=== PATIENT | male | born 1970 | race Caucasian/White ===

== ENCOUNTER 2024-02-28 18:13 | Inpatient (IN) | payer BC, MEDICAID ==
[~2024-02-28] VITALS: Ht 170.2 cm; Wt 65.5 kg
[2024-02-28 18:54] LABS: Basophils # (auto) 0.2 10 ^3/uL (0-0.2); Basophils % (auto) 1.8 % (0.0-2.0); Eosinophils # (auto) 0 10 ^3/uL (0-0.8); Eosinophils % (auto) 0.3 % (0.0-7.0); Hematocrit 33.1 % (41.0-53.0); Hemoglobin 9.9 g/dL (13.5-17.5); Lymphocytes # (auto) 0.5 10 ^3/uL (0.4-5.4); Lymphocytes % (auto) 6.1 % (10.0-50.0); Mean Corpuscular Hemoglobin 20.4 pg (28.0-32.0); Mean Corpuscular Hgb Conc. 29.8 g/dL (32.0-36.0); Mean Corpuscular Volume 68.5 fL (80.0-100.0); Monocytes # (auto) 0.8 10 ^3/uL (0-1.3); Monocytes % (auto) 9.1 % (0.0-12.0); Neutrophils # (auto) 7.1 10 ^3/uL (1.6-8.6); Neutrophils % (auto) 82.7 % (37.0-80.0); Red Blood Cells 4.83 10^6/uL (4.5-5.90); Red Cell Distribution Width 23.7 % (11.8-14.3); White Blood Cell 8.6 10^3/uL (4.4-10.8)
[2024-02-28 19:10] VITALS: O2SAT 98
[2024-02-28 19:12] LABS: Albumin 3.5 g/dL (3.2-4.8); Alkaline Phosphatase 167 U/L (46-116); Anion Gap 20 (5-15); Aspartate Aminotransferase 11 U/L (13-40); BUN/Creatinine Ratio 5.8 (10.0-20.0); Blood Urea Nitrogen 10 mg/dL (9-23); Calcium 10.2 mg/dL (8.7-10.4); Carbon Dioxide 10 mmol/L (20-30); Chloride 109 mmol/L (98-107); Glucose 83 mg/dL (74-106); Lipase 60 U/L (12-53); Potassium 2.8 mmol/L (3.5-5.1); Sodium 139 mmol/L (136-145)
[2024-02-28 19:13] LABS: Bilirubin, Total 0.2 mg/dL (0.2-1.0); Total Protein 5.5 g/dL (5.7-8.2)
[2024-02-28 19:17] LABS: Anisocytosis Slight; Hypochromia Marked; Ovalocytes FEW; Platelet Estimate Adequate
[2024-02-28 19:18] LABS: Alanine Aminotransferase < 9 U/L (7-40)
[2024-02-28 19:32] LABS: Urine Bacteria None Seen /hpf (None Seen)
[2024-02-28 19:36] VITALS: O2SAT 98
[2024-02-28 19:37] LABS: Urine Blood Negative /uL (Negative); Urine Clarity Clear (Clear); Urine Color Light-Yellow (Yellow); Urine Hyaline Cast MANY /lpf (0 - 2); Urine Mucus FEW (None Seen); Urine Protein, UAD 1+ (Negative); Urine Urobilinogen Normal (Negative); Urine WBC 2 /hpf (0 - 3)
[2024-02-28] MEDS: POTASSIUM EFFERVESENT TAB 25 MEQ PO ONE (20:27)
[2024-02-28] MEDS ORDERED: ACETAMINOPHEN 325 MG TAB PO PRN (21:45)
[2024-02-28] MEDS ORDERED: DOCUSATE SOD 100 MG CAP PO PRN (21:45)
[2024-02-28] MEDS ORDERED: ONDANSETRON HCL 4 MG/2 ML VIAL IV PRN (21:45)
[2024-02-28] MEDS: TAMSULOSIN HYDROCHLORIDE 0.4 MG CAP PO SCH (21:52)
[2024-02-28] MEDS: HYDROmorphone HCL 2 MG/ML VL/or syr IV ONE (21:56)
[2024-02-28] MEDS: SODIUM CHLOR 0.9% PF (SALINE LOCK) 10ML VIAL/SYR IV SCH (21:56)
[2024-02-28] MEDS: LACTATED RINGER'S 1,000 ML IV ONE (21:57)
[2024-02-29] VITALS (9 sets, daily range): BP systolic 105–123; BP diastolic 62–86; PULSE 91–106; RESP 15–18; TEMP 97.7–98.4; O2SAT 92–97
[2024-02-29] MEDS ORDERED: NITROGLYCERIN 0.4 MG SL TAB SL PRN ×2 (00:15→00:30)
[2024-02-29] MEDS ORDERED: MORPHINE SULFATE INJ 2 MG/ml SYRG IV PRN ×2 (00:15→00:30)
[2024-02-29] MEDS ORDERED: ONDANSETRON HCL 4 MG/2 ML VIAL IV PRN ×2 (00:15→00:30)
[2024-02-29] MEDS ORDERED: ACETAMINOPHEN 325 MG TAB PO PRN ×2 (00:15→00:30)
[2024-02-29 06:37] LABS: Eosinophils # (auto) 0.2 10 ^3/uL (0-0.8); Hemoglobin 8.9 g/dL (13.5-17.5); Lymphocytes # (auto) 0.5 10 ^3/uL (0.4-5.4); White Blood Cell 6.5 10^3/uL (4.4-10.8)
[2024-02-29 06:40] LABS: Basophils # (auto) 0.1 10 ^3/uL (0-0.2); Basophils % (auto) 1.2 % (0.0-2.0); Eosinophils % (auto) 2.7 % (0.0-7.0); Hematocrit 29.8 % (41.0-53.0); Lymphocytes % (auto) 7.5 % (10.0-50.0); Mean Corpuscular Hemoglobin 20.3 pg (28.0-32.0); Mean Corpuscular Volume 67.8 fL (80.0-100.0); Monocytes # (auto) 0.7 10 ^3/uL (0-1.3); Monocytes % (auto) 11.3 % (0.0-12.0); Neutrophils % (auto) 77.3 % (37.0-80.0); Red Blood Cells 4.39 10^6/uL (4.5-5.90)
[2024-02-29 06:43] LABS: Chloride 107 mmol/L (98-107); Sodium 139 mmol/L (136-145)
[2024-02-29 06:44] LABS: Anion Gap 13 (5-15); Calcium 10.4 mg/dL (8.7-10.4); Carbon Dioxide 19 mmol/L (20-30)
[2024-02-29 06:49] LABS: BUN/Creatinine Ratio 7.2 (10.0-20.0); Blood Urea Nitrogen 11 mg/dL (9-23); Glucose 83 mg/dL (74-106)
[2024-02-29] MEDS: MORPHINE SULFATE INJ 2 MG/ml SYRG IV PRN (07:00)
[2024-02-29 07:07] LABS: Red Cell Distribution Width 23.4 % (11.8-14.3)
[2024-02-29] MEDS ORDERED: MECL-126 PO (07:58)
[2024-02-29] MEDS ORDERED: GAB100C PO (07:58)
[2024-02-29] MEDS ORDERED: ESCI1TAB36 PO (07:58)
[2024-02-29] MEDS ORDERED: AMLO1TAB22 PO (07:58)
[2024-02-29] MEDS: LACTATED RINGER'S 1,000 ML IV ONE (09:58)
[2024-02-29] MEDS: POTASSIUM EFFERVESENT TAB 25 MEQ PO ONE (10:13)
[2024-02-29] MEDS: SODIUM CHLORIDE 0.9% 1,000 ML IV SCH (10:15)
[2024-02-29] MEDS: HYDROcodone-ACET 5/325MG TAB PO PRN (10:15)
[2024-02-29 10:28] LABS: % Iron Saturation 9.9 % (20-55)
[2024-02-29] MEDS: IRON SUCROSE COMPLEX 100 ML IV SCH (15:01)
[2024-02-29] MEDS: HYDROcodone-ACET 10/325MG TAB PO PRN (15:01)
[2024-02-29 15:41] LABS: Sodium Urine < 10 mmol/L (40-220)
[2024-02-29 15:45] LABS: Protein, Urine 115.4 mg/dL (0.0-11.9)
[2024-02-29 15:48] LABS: Creatinine, Urine 143.19 mg/dL (30.0-125.0)
[2024-02-29] MEDS: D5W/SOD CHLO 0.9% 1,000 ML IV SCH (16:00)
[2024-03-01] VITALS (7 sets, daily range): BP systolic 109–133; BP diastolic 64–84; PULSE 101–112; RESP 16–19; TEMP 97.4–98.5; O2SAT 92–95
[2024-03-01 06:14] LABS: Basophils # (auto) 0.1 10 ^3/uL (0-0.2); Hemoglobin 7.9 g/dL (13.5-17.5); Monocytes # (auto) 0.6 10 ^3/uL (0-1.3); White Blood Cell 5.3 10^3/uL (4.4-10.8)
[2024-03-01 06:21] LABS: Eosinophils # (auto) 0.2 10 ^3/uL (0-0.8); Eosinophils % (auto) 4.6 % (0.0-7.0); Hematocrit 25.9 % (41.0-53.0); Lymphocytes # (auto) 0.4 10 ^3/uL (0.4-5.4); Lymphocytes % (auto) 7.9 % (10.0-50.0); Mean Corpuscular Hemoglobin 20.9 pg (28.0-32.0); Mean Corpuscular Hgb Conc. 30.6 g/dL (32.0-36.0); Mean Corpuscular Volume 68.1 fL (80.0-100.0); Monocytes % (auto) 10.8 % (0.0-12.0); Neutrophils % (auto) 75.7 % (37.0-80.0); Red Blood Cells 3.81 10^6/uL (4.5-5.90); Red Cell Distribution Width 23.5 % (11.8-14.3)
[2024-03-01 06:32] LABS: Chloride 107 mmol/L (98-107); Potassium 2.9 mmol/L (3.5-5.1); Sodium 138 mmol/L (136-145)
[2024-03-01 06:33] LABS: Anion Gap 9 (5-15); Calcium 9.8 mg/dL (8.7-10.4); Carbon Dioxide 22 mmol/L (20-30)
[2024-03-01 06:38] LABS: BUN/Creatinine Ratio 7.6 (10.0-20.0); Blood Urea Nitrogen 10 mg/dL (9-23); Glucose 85 mg/dL (74-106)
[2024-03-01 08:06] LABS: PSA Free 0.21 ng/mL; Prostate Specific Antigen 0.6 ng/mL (0.0-4.0)
[2024-03-02] VITALS (7 sets, daily range): BP systolic 91–134; BP diastolic 56–75; PULSE 65–118; RESP 17–20; TEMP 97.6–98.6; O2SAT 91–98
[2024-03-02 07:17] LABS: Basophils # (auto) 0.1 10 ^3/uL (0-0.2); Hemoglobin 8.1 g/dL (13.5-17.5); Neutrophils # (auto) 6.3 10 ^3/uL (1.6-8.6); Red Blood Cells 3.92 10^6/uL (4.5-5.90)
[2024-03-02 07:19] LABS: Basophils % (auto) 0.9 % (0.0-2.0); Eosinophils # (auto) 0.3 10 ^3/uL (0-0.8); Eosinophils % (auto) 3.3 % (0.0-7.0); Hematocrit 27.1 % (41.0-53.0); Lymphocytes # (auto) 0.8 10 ^3/uL (0.4-5.4); Lymphocytes % (auto) 9.6 % (10.0-50.0); Mean Corpuscular Hemoglobin 20.7 pg (28.0-32.0); Mean Corpuscular Hgb Conc. 29.9 g/dL (32.0-36.0); Mean Corpuscular Volume 69.1 fL (80.0-100.0); Monocytes % (auto) 11.3 % (0.0-12.0); Neutrophils % (auto) 74.9 % (37.0-80.0); Nucleated Red Blood Cells % 0.4 %; White Blood Cell 8.5 10^3/uL (4.4-10.8)
[2024-03-02 07:30] LABS: Anion Gap 6 (5-15); Calcium 9.9 mg/dL (8.7-10.4); Carbon Dioxide 23 mmol/L (20-30); Chloride 109 mmol/L (98-107); Potassium 2.8 mmol/L (3.5-5.1); Sodium 138 mmol/L (136-145)
[2024-03-02 07:36] LABS: BUN/Creatinine Ratio 9.4 (10.0-20.0); Blood Urea Nitrogen 10 mg/dL (9-23); Glucose 94 mg/dL (74-106)
[2024-03-02] MEDS: POTASSIUM CHL 20 Meq TABLET PO ONE (11:16)
[2024-03-02] MEDS ORDERED: MECLIZINE HCL 25 MG TAB PO PRN (19:45)
[2024-03-02] MEDS: APIXABAN 5 MG TAB PO SCH (22:04)
[2024-03-02] MEDS: GABAPENTIN 100 MG CAP PO SCH (22:05)
[2024-03-02] MEDS: ATORVASTATIN 20 MG TAB PO SCH (22:05)
[2024-03-02] MEDS: CARVEDILOL 3.125 MG TAB PO SCH (22:06)
[2024-03-03] VITALS (7 sets, daily range): BP systolic 93–119; BP diastolic 57–70; PULSE 99–112; RESP 16–19; TEMP 98.4–100.1; O2SAT 92–98
[2024-03-03 06:07] LABS: Basophils # (auto) 0 10 ^3/uL (0-0.2); Basophils % (auto) 0.6 % (0.0-2.0); Eosinophils # (auto) 0.2 10 ^3/uL (0-0.8); Eosinophils % (auto) 4.2 % (0.0-7.0); Hematocrit 24.9 % (41.0-53.0); Hemoglobin 7.6 g/dL (13.5-17.5); Lymphocytes # (auto) 0.4 10 ^3/uL (0.4-5.4); Lymphocytes % (auto) 7.5 % (10.0-50.0); Mean Corpuscular Hgb Conc. 30.7 g/dL (32.0-36.0); Mean Corpuscular Volume 68.6 fL (80.0-100.0); Monocytes # (auto) 0.7 10 ^3/uL (0-1.3); Monocytes % (auto) 14.4 % (0.0-12.0); Neutrophils # (auto) 3.8 10 ^3/uL (1.6-8.6); Neutrophils % (auto) 73.3 % (37.0-80.0); Nucleated Red Blood Cells % 0.1 %; Red Blood Cells 3.64 10^6/uL (4.5-5.90); Red Cell Distribution Width 23.7 % (11.8-14.3); White Blood Cell 5.2 10^3/uL (4.4-10.8)
[2024-03-03 06:16] LABS: Chloride 112 mmol/L (98-107); Potassium 3.5 mmol/L (3.5-5.1); Sodium 141 mmol/L (136-145)
[2024-03-03 06:17] LABS: Anion Gap 5 (5-15); Calcium 9.8 mg/dL (8.7-10.4); Carbon Dioxide 24 mmol/L (20-30)
[2024-03-03 06:22] LABS: BUN/Creatinine Ratio 10.3 (10.0-20.0); Blood Urea Nitrogen 11 mg/dL (9-23); Glucose 93 mg/dL (74-106)
[2024-03-03 08:06] LABS: Immunoglobulin A 208 mg/dL (90-386); Immunoglobulin G, Serum 510 mg/dL (603-1613); Immunoglobulin M 34 mg/dL (20-172)
[2024-03-03] MEDS: ASPirin 81 mg TAB PO SCH (09:06)
[2024-03-03] MEDS: amLODIPine BESYLATE 5 MG TAB PO SCH (09:07)
[2024-03-03] MEDS: FUROSEMIDE 20 MG TAB PO SCH (09:07)
[2024-03-03] MEDS: LISINOPRIL 5 MG TAB PO SCH (09:08)
[2024-03-03 11:03] LABS: Hypochromia Marked; Ovalocytes MANY; Platelet Estimate Adequate
[2024-03-03 11:04] LABS: Anisocytosis Slight
[2024-03-03 15:07] LABS: Albumin 2.4 g/dL (2.9-4.4); Alpha-1-Globulin 0.2 g/dL (0.0-0.4); Alpha-2-Globulin 0.8 g/dL (0.4-1.0); Gamma Globulin 0.5 g/dL (0.4-1.8); Globulin Total 2.3 g/dL (2.2-3.9); Protein Total Serum 4.7 g/dL (6.0-8.5)
[2024-03-04] VITALS (8 sets, daily range): BP systolic 81–98; BP diastolic 49–55; PULSE 91–108; RESP 16–18; TEMP 98.3–100.8; O2SAT 92–99
[2024-03-04 05:59] LABS: Mean Corpuscular Volume 68.6 fL (80.0-100.0); White Blood Cell 5.8 10^3/uL (4.4-10.8)
[2024-03-04 06:06] LABS: Hematocrit 23.4 % (41.0-53.0); Hemoglobin 7.1 g/dL (13.5-17.5); Mean Corpuscular Hemoglobin 20.9 pg (28.0-32.0); Mean Corpuscular Hgb Conc. 30.5 g/dL (32.0-36.0); Red Blood Cells 3.41 10^6/uL (4.5-5.90)
[2024-03-04 06:10] LABS: Band Neutrophils % (manual) 0; Basophils % (manual) 0 (0.0-2.0); Blast Cells 0; Myelocytes % 0; Promyelocytes % 0; Reactive Lymphocytes 0; Red Cell Distribution Width 24.1 % (11.8-14.3)
[2024-03-04 06:12] LABS: Anion Gap 6 (5-15); Carbon Dioxide 21 mmol/L (20-30); Chloride 108 mmol/L (98-107); Potassium 3.4 mmol/L (3.5-5.1)
[2024-03-04 06:13] LABS: Calcium 9.4 mg/dL (8.7-10.4)
[2024-03-04 06:18] LABS: BUN/Creatinine Ratio 8.5 (10.0-20.0); Blood Urea Nitrogen 10 mg/dL (9-23); Glucose 90 mg/dL (74-106)
[2024-03-04 06:21] LABS: Sodium 135 mmol/L (136-145)
[2024-03-04 08:06] LABS: Albumin Urine 6.7 % (.); Alpha-1-Globulin Urine 3.5 % (.); Alpha-2-Globulin Urine 37.2 % (.); Beta Globulin Urine 39.8 % (.); Gamma Globulin Urine 12.8 % (.); Protein Total Urine 74.8 mg/dL (Not Estab.)
[2024-03-04 08:09] LABS: Anisocytosis Moderate; Eosinophils % (manual) 5 (0-7); Hypochromia Moderate; Lymphocytes % (manual) 10 (10.0-50.0); Metamyelocytes % 1; Monocytes % (manual) 16 (0-12); Platelet Estimate Adequate
[2024-03-05] VITALS (30 sets, daily range): BP systolic 75–111; BP diastolic 41–70; PULSE 73–100; RESP 13–24; TEMP 97.9–99.1; O2SAT 94–100
[2024-03-05 09:37] LABS: Basophils # (auto) 0 10 ^3/uL (0-0.2); Basophils % (auto) 0.5 % (0.0-2.0); Eosinophils # (auto) 0.1 10 ^3/uL (0-0.8); Lymphocytes # (auto) 0.6 10 ^3/uL (0.4-5.4); Neutrophils # (auto) 3.3 10 ^3/uL (1.6-8.6); White Blood Cell 4.8 10^3/uL (4.4-10.8)
[2024-03-05 09:39] LABS: Eosinophils % (auto) 2.6 % (0.0-7.0); Hematocrit 21.7 % (41.0-53.0); Lymphocytes % (auto) 12.6 % (10.0-50.0); Mean Corpuscular Hemoglobin 20.7 pg (28.0-32.0); Mean Corpuscular Hgb Conc. 29.8 g/dL (32.0-36.0); Mean Corpuscular Volume 69.4 fL (80.0-100.0); Monocytes # (auto) 0.8 10 ^3/uL (0-1.3); Monocytes % (auto) 15.9 % (0.0-12.0); Neutrophils % (auto) 68.4 % (37.0-80.0); Nucleated Red Blood Cells % 0.4 %; Red Blood Cells 3.13 10^6/uL (4.5-5.90)
[2024-03-05 09:41] LABS: Red Cell Distribution Width 24.1 % (11.8-14.3)
[2024-03-05 09:42] LABS: Hemoglobin 6.5 g/dL (13.5-17.5)
[2024-03-05 10:04] LABS: Platelet Estimate Adequate
[2024-03-05 10:05] LABS: Anisocytosis Moderate; Hypochromia Moderate
[2024-03-05 10:06] LABS: Ovalocytes MODERATE; Tear Drop Cells FEW
[2024-03-05] MEDS: POTASSIUM EFFERVESENT TAB 25 MEQ PO ONE (10:19)
[2024-03-05] MEDS: MIDODRINE HCL 10 MG TAB PO ONE (10:19)
[2024-03-05] MEDS ORDERED: metroNIDAZOLE 500MG/100ML 100 ML IV SCH (14:00)
[2024-03-05] MEDS: levoFLOXacin 500MG 100 ML IV SCH (17:40)
[2024-03-05] MEDS: MIDODRINE HCL 10 MG TAB PO SCH (17:43)
[2024-03-05] MEDS: metroNIDAZOLE 500MG/100ML 100 ML IV SCH (18:43)
[2024-03-05 19:11] LABS: Hematocrit 26.1 % (41.0-53.0)
[2024-03-05] MEDS: NOREPINEPHRINE 8 MG/250ML KIT 250 ML IV SCH (21:44)
[2024-03-06] VITALS (98 sets, daily range): BP systolic 77–132; BP diastolic 47–87; PULSE 79–110; RESP 11–31; TEMP 98.2–99.7; O2SAT 85–100
[2024-03-06 05:28] LABS: Basophils # (auto) 0 10 ^3/uL (0-0.2); Basophils % (auto) 0.4 % (0.0-2.0); Eosinophils # (auto) 0.2 10 ^3/uL (0-0.8); Eosinophils % (auto) 4.5 % (0.0-7.0); Hematocrit 26.1 % (41.0-53.0); Hemoglobin 8.3 g/dL (13.5-17.5); Lymphocytes # (auto) 0.9 10 ^3/uL (0.4-5.4); Lymphocytes % (auto) 15.9 % (10.0-50.0); Mean Corpuscular Hemoglobin 22.7 pg (28.0-32.0); Mean Corpuscular Hgb Conc. 31.7 g/dL (32.0-36.0); Mean Corpuscular Volume 71.6 fL (80.0-100.0); Monocytes # (auto) 0.8 10 ^3/uL (0-1.3); Monocytes % (auto) 14.2 % (0.0-12.0); Neutrophils # (auto) 3.6 10 ^3/uL (1.6-8.6); Nucleated Red Blood Cells % 0.2 %; Red Blood Cells 3.64 10^6/uL (4.5-5.90); White Blood Cell 5.6 10^3/uL (4.4-10.8)
[2024-03-06 05:33] LABS: Red Cell Distribution Width 24.7 % (11.8-14.3)
[2024-03-06 05:38] LABS: Chloride 110 mmol/L (98-107); Sodium 139 mmol/L (136-145)
[2024-03-06 05:39] LABS: Anion Gap 6 (5-15); Calcium 8.5 mg/dL (8.7-10.4); Carbon Dioxide 23 mmol/L (20-30)
[2024-03-06 05:44] LABS: BUN/Creatinine Ratio 13.4 (10.0-20.0); Blood Urea Nitrogen 13 mg/dL (9-23); Glucose 71 mg/dL (74-106)
[2024-03-06 07:41] LABS: Anisocytosis Moderate; Hypochromia Moderate; Platelet Estimate Adequate
[2024-03-06] MEDS ORDERED: IBUPROFEN 800 MG TAB PO PRN (16:45)
[2024-03-06] MEDS ORDERED: KETOROLAC TROMETH 30 MG/ML 1ML VIAL IV PRN (17:00)
[2024-03-06] MEDS: OXYCODONE W/ ACETAMINOPHEN 5/325MG TABLET PO PRN (17:29)
[2024-03-07] VITALS (87 sets, daily range): BP systolic 77–125; BP diastolic 46–74; PULSE 72–126; RESP 9–36; TEMP 97.7–98.5; O2SAT 70–100
[2024-03-07 05:15] LABS: Basophils # (auto) 0 10 ^3/uL (0-0.2); Basophils % (auto) 0.3 % (0.0-2.0); Eosinophils # (auto) 0.3 10 ^3/uL (0-0.8); Hematocrit 28.3 % (41.0-53.0); Hemoglobin 8.7 g/dL (13.5-17.5); Lymphocytes # (auto) 0.8 10 ^3/uL (0.4-5.4); Mean Corpuscular Hemoglobin 22.5 pg (28.0-32.0); Mean Corpuscular Hgb Conc. 30.7 g/dL (32.0-36.0); Mean Corpuscular Volume 73.3 fL (80.0-100.0); Monocytes # (auto) 0.6 10 ^3/uL (0-1.3); Monocytes % (auto) 14.4 % (0.0-12.0); Neutrophils # (auto) 2.5 10 ^3/uL (1.6-8.6); Neutrophils % (auto) 59.3 % (37.0-80.0); Nucleated Red Blood Cells % 0.2 %; Red Blood Cells 3.86 10^6/uL (4.5-5.90); White Blood Cell 4.3 10^3/uL (4.4-10.8)
[2024-03-07 05:16] LABS: Red Cell Distribution Width 24.8 % (11.8-14.3)
[2024-03-07 05:20] LABS: Chloride 110 mmol/L (98-107); Potassium 3.3 mmol/L (3.5-5.1); Sodium 141 mmol/L (136-145)
[2024-03-07 05:21] LABS: Anion Gap 10 (5-15); Calcium 8.2 mg/dL (8.7-10.4); Carbon Dioxide 21 mmol/L (20-30)
[2024-03-07 05:26] LABS: BUN/Creatinine Ratio 6.1 (10.0-20.0); Blood Urea Nitrogen 6 mg/dL (9-23); Glucose 82 mg/dL (74-106)
[2024-03-07 06:00] LABS: Anisocytosis Moderate; Hypochromia Moderate; Platelet Estimate Adequate
[2024-03-07 06:01] LABS: Ovalocytes MANY
[2024-03-07] MEDS: POTASSIUM CHL 20MEQ/100ML 100 ML IV ONE (10:23)
[2024-03-07] MEDS ORDERED: DIPHENOXYLATE W/ATROPINE 2.5 MG TAB PO PRN (12:15)
[2024-03-07] MEDS: MAGNESIUM SULFATE 1GM/100ML 100 ML IV SCH (13:34)
[2024-03-07] MEDS: MAGNESIUM OXIDE 400 MG TAB PO SCH (22:08)
[2024-03-08] VITALS (37 sets, daily range): BP systolic 96–134; BP diastolic 35–71; PULSE 73–121; RESP 14–30; TEMP 97.3–97.9; O2SAT 88–97
[2024-03-08 06:30] LABS: Anion Gap 11 (5-15); Carbon Dioxide 21 mmol/L (20-30); Chloride 108 mmol/L (98-107); Potassium 3.2 mmol/L (3.5-5.1); Sodium 140 mmol/L (136-145)
[2024-03-08 06:31] LABS: Calcium 8.3 mg/dL (8.7-10.4)
[2024-03-08 06:36] LABS: BUN/Creatinine Ratio 5.6 (10.0-20.0); Blood Urea Nitrogen 6 mg/dL (9-23); Glucose 90 mg/dL (74-106)
[2024-03-08] MEDS: POTASSIUM EFFERVESENT TAB 25 MEQ PO ONE (11:11)
[2024-03-08] MEDS: MAGNESIUM SULFATE 1GM/100ML 100 ML IV SCH (11:12)
[2024-03-08] MEDS: CARVEDILOL 3.125 MG TAB PO SCH (22:09)
[2024-03-09] VITALS (7 sets, daily range): BP systolic 101–117; BP diastolic 55–79; PULSE 81–111; RESP 16–20; TEMP 37.1; O2SAT 90–97
[2024-03-09 07:27] LABS: Alanine Aminotransferase 14 U/L (7-40); Alkaline Phosphatase 138 U/L (46-116); Calcium 8.6 mg/dL (8.7-10.4); Carbon Dioxide 21 mmol/L (20-30); Chloride 112 mmol/L (98-107); Glucose 59 mg/dL (74-106); Potassium 3.8 mmol/L (3.5-5.1); Sodium 141 mmol/L (136-145)
[2024-03-09 07:28] LABS: Albumin 2.9 g/dL (3.2-4.8); Anion Gap 8 (5-15); Aspartate Aminotransferase 44 U/L (13-40); BUN/Creatinine Ratio 4.9 (10.0-20.0); Blood Urea Nitrogen 5 mg/dL (9-23)
[2024-03-09 07:29] LABS: Bilirubin, Total 0.3 mg/dL (0.2-1.0); Total Protein 4.7 g/dL (5.7-8.2)
[2024-03-09 07:31] LABS: Basophils # (auto) 0 10 ^3/uL (0-0.2); Eosinophils # (auto) 0.3 10 ^3/uL (0-0.8); Lymphocytes # (auto) 0.6 10 ^3/uL (0.4-5.4); Lymphocytes % (auto) 11.7 % (10.0-50.0); Monocytes # (auto) 0.5 10 ^3/uL (0-1.3); Monocytes % (auto) 8.8 % (0.0-12.0); Neutrophils % (auto) 72.7 % (37.0-80.0); Red Blood Cells 3.79 10^6/uL (4.5-5.90)
[2024-03-09 07:33] LABS: Basophils % (auto) 0.3 % (0.0-2.0); Eosinophils % (auto) 6.5 % (0.0-7.0); Hematocrit 27.5 % (41.0-53.0); Hemoglobin 8.6 g/dL (13.5-17.5); Mean Corpuscular Hemoglobin 22.6 pg (28.0-32.0); Mean Corpuscular Hgb Conc. 31.2 g/dL (32.0-36.0); Mean Corpuscular Volume 72.4 fL (80.0-100.0); Neutrophils # (auto) 3.8 10 ^3/uL (1.6-8.6); Nucleated Red Blood Cells % 0.2 %; Red Cell Distribution Width 25.4 % (11.8-14.3); White Blood Cell 5.3 10^3/uL (4.4-10.8)
[2024-03-09] MEDS ORDERED: MID10T PO (12:38)
[2024-03-09] MEDS ORDERED: CARV-214 PO (12:38)
[2024-03-09] MEDS ORDERED: ATOR20TA50 PO (12:38)
[2024-03-09] MEDS ORDERED: TAMS-35 PO (12:38)
[2024-03-09] MEDS ORDERED: APIX5TAB PO (12:38)
== END 2024-03-09 16:20 | disposition home or self-care (01) | DRG 465 ==
LOC: EDUNIT# 18:13 → EDBD 18:13 → ER 18:13 → OVERFLOW 02-29 00:17 → EAST 02-29 00:17 → UNDODEPER 02-29 00:45 → EAST 02-29 01:59 → DOU IN ICU 03-05 21:48 → ICU CENTRL 03-06 03:17 → DOU IN ICU 03-06 09:44 → ICU CENTRL 03-06 10:07 → DOU IN ICU 03-08 00:56 → TELE-CENTR 03-08 13:36 → TELE-WESTW 03-09 05:47
PROVIDERS: ADMIT Nurse Practitioner Family; ATTEND Internal Medicine
PROC: 30233N1 Transfusion of Nonautologous Red Blood Cells into Peripheral Vein, Percutaneous Approach (ICD-10-PCS; principal; 2024-03-05)
DX: N20.0 Calculus of kidney (principal); J96.01 Acute respiratory failure with hypoxia; N17.0 Acute kidney failure with tubular necrosis; E87.20 Acidosis, unspecified; M48.54XA Collapsed vertebra, not elsewhere classified, thoracic region, initial encounter for fracture; K90.9 Intestinal malabsorption, unspecified; M48.04 Spinal stenosis, thoracic region; E11.22 Type 2 diabetes mellitus with diabetic chronic kidney disease; I95.9 Hypotension, unspecified; N28.0 Ischemia and infarction of kidney; K50.90 Crohn's disease, unspecified, without complications; M48.56XA Collapsed vertebra, not elsewhere classified, lumbar region, initial encounter for fracture; D50.9 Iron deficiency anemia, unspecified; E87.6 Hypokalemia; I12.9 Hypertensive chronic kidney disease with stage 1 through stage 4 chronic kidney disease, or unspecified chronic kidney disease; N18.9 Chronic kidney disease, unspecified; E86.0 Dehydration; F17.210 Nicotine dependence, cigarettes, uncomplicated; G89.29 Other chronic pain; Z90.49 Acquired absence of other specified parts of digestive tract; Z87.442 Personal history of urinary calculi; Z86.73 Personal history of transient ischemic attack (TIA), and cerebral infarction without residual deficits; Z80.41 Family history of malignant neoplasm of ovary
CPT/HCPCS: 36415; 70450; 72146; 74176; 76775; 80048; 80053; 82550; 82570; 82728; 82784; 82962; 83521; 83540; 83550; 83735; 84154; 84155; 84156; 84165; 84166; 84300; 85007; 85014; 85018; 85025; 85027; 86334; 86335; 86850; 86900; 86901; 86920; 87040; 87081; 87205; 87493; 96361; 96374; 96375; 97110; 97116; 97163; 97530; G0378; J1756; J1956; J3480; J3490; J7042